=== PATIENT | male | born 1970 | race Caucasian/White ===

== ENCOUNTER 2021-04-29 09:07 | Outpatient (CLI) | payer OTHER, SELFPAY ==
--- NOTE | ~2021-04-29 | CT_ITS ---
EXAMINATION: CT abdomen pelvis w con DATE: 04/29/2021 09:46 INDICATION: Low abdominal pain for 3 weeks TECHNIQUE: Computed tomography (CT) of the abdomen and pelvis was performed with 100 cc Omnipaque 350 intravenous contrast. Automated exposure control and iterative reconstruction technique were employe d. Exam dose: 769.61 mGy-cm total exam DLP. COMPARISON: None. FINDINGS: There is focal discoid scarring in the anterolateral left lower lobe base. No infiltrate or consolidation at the included lower lung zones. Heart size within normal range. No pericardial or pleural effusion. The liver, spleen, pancreas, adrenal glands are unremarkable. The gallbladder is present. No gallblad marta wall thickening or pericholecystic fluid or fat stranding or bile duct or pancreatic duct dilatat ion is noted. There are several up to 1.7 cm right renal cysts. There is a 1.7 cm complex mass including cystic and enhancing solid components at the anterolateral a spect of the lower pole of the right kidney. Right renal malignancy is not excluded. MR kidney examin ation is recommended. The left kidney is unremarkable. No urinary tract calculus or hydroureteronephrosis is detected. The urinary bladder is unremarkable. No significant abnormality of the prostate gland. There is atherosclerotic calcification of the abdominal aorta. No intraperitoneal or retroperitoneal or pelvic mass lesion or adenopathy or ascites. Normal appendix. No bowel obstruction, bowel wall thickening, pneumatosis or intraperitoneal free air . Very small fat-containing umbilical hernia. No suspicious osteolytic or osteoblastic lesions are noted. IMPRESSION: Suspicious complex 1.7 cm mass in the anterolateral lower pole right kidney; right renal malignancy is not excluded. MR kidney examination is recommended Right renal cysts Dr. Koenig telephoned the report and MR kidney examination recommendation on 04/29/2021 [address] [place]'s nurse Radha Reviewed, dictated and finalized at [facility]. Reviewed, dictated and finalized at [facility]. [employer] ASSISTANT IMPRESSION: Suspicious complex 1.7 cm mass in the anterolateral lower pole rig ht kidney; right renal malignancy is not excluded. MR kidney examination is rec ommended Right renal cysts Dr. Koenig telephoned the report and MR kidney examination recommendation on [address] [place]'s nurse Radha
== END 2021-04-29 09:08 | disposition home or self-care (01) ==
LOC: CHSIMG 09:12
PROVIDERS: PCP Internal Medicine; Visit Provider Internal Medicine
DX: R10.32 Left lower quadrant pain (principal)
CPT/HCPCS: 74177; Q9967

== ENCOUNTER 2021-06-17 13:20 | Outpatient (CLI) | payer OTHER, SELFPAY ==
--- NOTE | ~2021-06-17 | MR_ITS ---
EXAMINATION: MR abdomen wo/w con DATE: 06/17/2021 15:07 INDICATION: Right renal mass TECHNIQUE: Magnetic resonance imaging (MRI) of the abdomen was performed without and with 19 mL Multi ruben intravenous contrast. Sequences included coronal T2-weighted SS-FSE, coronal and axial FS 2D-F IESTA, axial STIR FSE, axial T2-weighted SS-FSE, axial T2-weighted FS SS-FSE, axial diffusion-weighte d SE, axial dual-echo T1-weighted FSPGR, and axial and coronal T1-weighted LAVA. Postcontrast axial T 1-weighted LAVA images were obtained in a time course. Postcontrast coronal T1-weighted LAVA images w ere obtained. COMPARISON: CT dated 04/29/2021 FINDINGS: Heart size is normal. No pericardial or pleural effusion. Liver, gallbladder, spleen, pancreas, left kidney and bilateral adrenal glands are normal. There is a 1.8 cm mixed solid and cystic mass with fran th thick and enhancing septations and separate small nodular enhancing components at the lower pole o f the right kidney, Bosniak 4. There are couple T2 hyperintense nonenhancing cysts at the upper pole of the right kidney the largest measuring 1.7 cm No pathologically enlarged abdominal bones are unrem arkable with normal marrow signal. lymphadenopathy. Visualized portions of the bowels including the a ppendix are normal. IMPRESSION: 1. 1.8 cm Bosniak 4 mixed solid and cystic nodule at the lower pole of the right kidney which is a cotter rgical lesion. No lesion suspicious for metastatic disease. Reviewed, dictated and finalized at [facility]. GATHERER IMPRESSION: 1. 1.8 cm Bosniak 4 mixed solid and cystic nodule at the lower pole of the righ t kidney which is a surgical lesion. No lesion suspicious for metastatic diseas e.
[2021-06-17 14:07] LABS: Estimated Glomerular Filt Rate > 60
== END 2021-06-17 13:21 | disposition home or self-care (01) ==
PROVIDERS: PCP Internal Medicine; Visit Provider Urology
DX: N28.89 Other specified disorders of kidney and ureter (principal)
CPT/HCPCS: 74183; A9577

== ENCOUNTER 2021-07-08 09:15 | Outpatient (CLI) | payer OTHER, SELFPAY ==
--- NOTE | ~2021-07-08 | XR_ITS ---
EXAMINATION: XR chest 2V DATE: 07/08/2021 09:34 INDICATION: Renal mass. Preoperative evaluation for possible metastatic disease. TECHNIQUE: frontal and lateral views of the chest were obtained. COMPARISON: Chest radiograph dated 07/19/2007 FINDINGS: No focal airspace opacities, pulmonary edema, pleural effusion or pneumothorax. The cardiomediastinal silhouette is normal. Old healed fracture deformities at the lateral left sixth-eighth ribs. IMPRESSION: 1. No acute cardiopulmonary disease. Reviewed, dictated and finalized at location [facility].
== END 2021-07-08 09:16 | disposition home or self-care (01) ==
LOC: CHSIMG 09:17
PROVIDERS: PCP Internal Medicine; Visit Provider Urology
DX: N28.89 Other specified disorders of kidney and ureter (principal)
CPT/HCPCS: 71046

== ENCOUNTER 2021-11-11 15:50 | Outpatient (CLI) | payer OTHER, SELFPAY ==
--- NOTE | ~2021-11-11 | XR_ITS ---
XR_CERV2-3V_CR DATE: 11/11/2021 16:31 INDICATION: Left neck pain, neck swelling TECHNIQUE: AP, open-mouth, lateral views COMPARISON: 04/11/2014 cervical spine FINDINGS: There is straightening of the cervical spine suggesting muscle spasm. There is mild levoscoliosis of the cervical and upper thoracic spine. C1 and C2 are normally aligned and the odontoid process is intact. Moderately severe degenerative disc disease at C5-6 and C6-7 and severe degenerative disc disease at C7-T1. No fracture or dislocation or locked facet or prevertebral soft tissue swelling. There is uncovertebral joint spurring primarily at C5-6 and C6-7. IMPRESSION: Straightening and mild levoscoliosis Moderately severe degenerative disease at C5-6 and C6-7 Severe degenerative disc disease at C7-T1 Reviewed, dictated and finalized at [facility]. Reviewed, dictated and finalized at [facility].
[2021-11-11 16:10] LABS: Basophils Absolute Auto 0.04 K/mm3 (0.00-0.10); Basophils Percent Auto 0.4 % (0.0-1.0); Eosinophils Absolute Auto 0.03 K/mm3 (0.02-0.50); Eosinophils Percent Auto 0.3 % (1.0-6.0); Hematocrit 39.6 % (40.0-54.0); Hemoglobin 13.2 g/dL (14.0-18.0); Immature Granulocyte Absolute 0.03 K/mm3 (0.00-0.00); Immature Granulocyte Percent A 0.3 % (0.0-0.0); Lymphocytes Absolute Auto 2.19 K/mm3 (1.10-4.50); Lymphocytes Percent Auto 24.5 % (18.0-42.0); Mean Corpuscular HGB Conc 33.3 g/dL (32.0-36.0); Mean Corpuscular Hemoglobin 28.2 pg (27.0-31.0); Mean Corpuscular Volume 84.6 fL (78.0-102.0); Mean Platelet Volume 8.7 fl (8.7-11.0); Monocytes Absolute Auto 0.65 K/mm3 (0.10-0.90); Monocytes Percent Auto 7.3 % (2.0-11.0); Neutrophils Percent Auto 67.2 % (50.0-70.0); Platelet Count Result 396 K/mm3 (150-420); Red Blood Count 4.68 M/mm3 (4.70-6.10); Red Cell Distribution Width 13.4 % (11.6-14.4); White Blood Count 8.9 K/mm3 (4.8-10.8)
[2021-11-11 16:40] LABS: Alanine Aminotransferase 42 U/L (16-63); Albumin Level 4.2 g/dL (3.4-5.0); Alkaline Phosphatase 94 U/L (46-116); Anion Gap 9 mmol/L (8-16); Aspartate Amino Transferase 21 U/L (15-37); Bilirubin,Total 0.2 mg/dL (0.00-1.00); Blood Urea Nitrogen 12 mg/dL (7-18); Calcium 9.1 mg/dL (8.5-10.1); Carbon Dioxide 24 mmol/L (21-32); Chloride 103 mmol/L (98-108); Estimated Glomerular Filt Rate > 60; Glucose 95 mg/dL (70-99); Osmolality Calculated 281 mOsm/kg (285-295); Potassium 4.3 mmol/L (3.5-5.1); Sodium 136 mmol/L (136-145); Total Protein 7.1 g/dL (6.4-8.2); Uric Acid 4.5 mg/dL (3.5-7.2)
[2021-11-11 16:41] LABS: CRP < 0.2 mg/dL (0.0-0.9)
[2021-11-12 14:39] LABS: Ferritin 71 ng/mL (26-388); Iron 70 ug/dL (65-175); Percent Iron Saturation 25 % (12-57)
== END 2021-11-11 15:51 | disposition home or self-care (01) ==
LOC: CHSLAB 15:53
PROVIDERS: PCP Internal Medicine; Visit Provider Nurse Practitioner Family
DX: M54.2 Cervicalgia (principal); R22.1 Localized swelling, mass and lump, neck; I10 Essential (primary) hypertension; M50.322 Other cervical disc degeneration at C5-C6 level; M50.323 Other cervical disc degeneration at C6-C7 level; D64.9 Anemia, unspecified
CPT/HCPCS: 36415; 72040; 80053; 82728; 83540; 83550; 84550; 85025; 86140

== ENCOUNTER 2021-12-19 11:39 | Outpatient (CLI) | payer OTHER, SELFPAY ==
[2021-12-19 11:52] LABS: Basophils Absolute Auto 0.05 K/mm3 (0.00-0.10); Basophils Percent Auto 0.5 % (0.0-1.0); Eosinophils Percent Auto 1.1 % (1.0-6.0); Hematocrit 42.3 % (40.0-54.0); Hemoglobin 14.5 g/dL (14.0-18.0); Immature Granulocyte Absolute 0.06 K/mm3 (0.00-0.00); Immature Granulocyte Percent A 0.6 % (0.0-0.0); Lymphocytes Absolute Auto 3.42 K/mm3 (1.10-4.50); Lymphocytes Percent Auto 36.5 % (18.0-42.0); Mean Corpuscular HGB Conc 34.3 g/dL (32.0-36.0); Mean Corpuscular Hemoglobin 28.3 pg (27.0-31.0); Mean Corpuscular Volume 82.6 fL (78.0-102.0); Mean Platelet Volume 8.7 fl (8.7-11.0); Monocytes Absolute Auto 1.03 K/mm3 (0.10-0.90); Neutrophils Absolute Auto 4.7 K/mm3 (1.7-7.2); Neutrophils Percent Auto 50.3 % (50.0-70.0); Platelet Count Result 405 K/mm3 (150-420); Red Blood Count 5.12 M/mm3 (4.70-6.10); Red Cell Distribution Width 13.3 % (11.6-14.4); White Blood Count 9.4 K/mm3 (4.8-10.8)
[2021-12-19 11:58] LABS: Appearance Urine Clear (Clear); Bilirubin Urine Negative (Negative); Color Urine Light Yellow (Yellow); Glucose Urine UA Negative (Negative); Ketones Urine Negative (Negative); Leukocyte Esterase Ur Negative (Negative); Nitrate Urine Negative (Negative); Protein Urine Negative (Negative); Specific Grav Ur 1.015 (1.010-1.020); Urobilinogen Urine 0.2 mg/dL (0.2-1.0)
[2021-12-19 12:08] LABS: Alanine Aminotransferase 116 U/L (16-63); Albumin Level 4.1 g/dL (3.4-5.0); Alkaline Phosphatase 110 U/L (46-116); Anion Gap 11 mmol/L (8-16); Aspartate Amino Transferase 66 U/L (15-37); Bilirubin,Total 0.2 mg/dL (0.00-1.00); Blood Urea Nitrogen 15 mg/dL (7-18); Calcium 8.9 mg/dL (8.5-10.1); Carbon Dioxide 22 mmol/L (21-32); Chloride 101 mmol/L (98-108); Cholesterol 269 mg/dL (0-200); Estimated Glomerular Filt Rate > 60; Glucose 105 mg/dL (70-99); HDL Direct 37 mg/dL (40-60); LDL Cholesterol Calculated 169 mg/dL (<130); Osmolality Calculated 278 mOsm/kg (285-295); Potassium 3.6 mmol/L (3.5-5.1); Sodium 134 mmol/L (136-145); Total Protein 7.8 g/dL (6.4-8.2); Triglycerides 317 mg/dL (0-150)
[2021-12-19 12:10] LABS: Add Urine Microscopic? YES; Bacteria Urine None seen /hpf; Blood Urine Trace-Intact (Negative); RBC Urine 0-2 /hpf (0-2); WBC Urine None seen /hpf (0-3)
== END 2021-12-19 11:40 | disposition home or self-care (01) ==
LOC: CHSLAB 11:41
PROVIDERS: PCP Internal Medicine; Visit Provider Internal Medicine
DX: D64.9 Anemia, unspecified (principal); I10 Essential (primary) hypertension
CPT/HCPCS: 36415; 80053; 80061; 81001; 85025

== ENCOUNTER 2021-12-20 09:08 | Outpatient (CLI) | payer OTHER, SELFPAY ==
[2021-12-20 10:40] LABS: GGT 321 U/L (15-85)
[2021-12-20 10:47] LABS: Hemoglobin A1C 5.6 % (<5.7)
[2021-12-23 12:10] LABS: Hepatitis A Antibody IgM Nonreactive; Hepatitis B Core Antibody Nonreactive (Nonreactive); Hepatitis B Surface Antigen Nonreactive (Nonreactive); Hepatitis C Signal to Cutoff 0.02 ratio (<1.00); Hepatitis C Virus Antibody Nonreactive (Nonreactive)
[2022-01-06 06:56] LABS: Reference Lab Test Name PHOSPHATIDYLETHANOL
== END 2021-12-20 09:09 | disposition home or self-care (01) ==
LOC: CHSLAB 09:09
PROVIDERS: PCP Internal Medicine; Visit Provider Internal Medicine
DX: R94.5 Abnormal results of liver function studies (principal); R73.9 Hyperglycemia, unspecified
CPT/HCPCS: 36415; 80074; 80321; 82977; 83036; G0480

== ENCOUNTER 2022-01-29 11:01 | Outpatient (CLI) | payer OTHER, SELFPAY ==
[2022-01-29 11:16] LABS: Basophils Absolute Auto 0.04 K/mm3 (0.00-0.10); Basophils Percent Auto 0.3 % (0.0-1.0); Eosinophils Absolute Auto 0.11 K/mm3 (0.02-0.50); Eosinophils Percent Auto 0.9 % (1.0-6.0); Hematocrit 44.3 % (40.0-54.0); Hemoglobin 14.9 g/dL (14.0-18.0); Immature Granulocyte Absolute 0.05 K/mm3 (0.00-0.00); Immature Granulocyte Percent A 0.4 % (0.0-0.0); Lymphocytes Absolute Auto 3.14 K/mm3 (1.10-4.50); Lymphocytes Percent Auto 25.1 % (18.0-42.0); Mean Corpuscular HGB Conc 33.6 g/dL (32.0-36.0); Mean Corpuscular Hemoglobin 27.7 pg (27.0-31.0); Mean Corpuscular Volume 82.5 fL (78.0-102.0); Mean Platelet Volume 8.8 fl (8.7-11.0); Monocytes Absolute Auto 1.28 K/mm3 (0.10-0.90); Monocytes Percent Auto 10.2 % (2.0-11.0); Neutrophils Absolute Auto 7.9 K/mm3 (1.7-7.2); Neutrophils Percent Auto 63.1 % (50.0-70.0); Platelet Count Result 387 K/mm3 (150-420); Red Blood Count 5.37 M/mm3 (4.70-6.10); Red Cell Distribution Width 14.3 % (11.6-14.4); White Blood Count 12.5 K/mm3 (4.8-10.8)
[2022-01-29 11:38] LABS: Anion Gap 9 mmol/L (8-16); Blood Urea Nitrogen 11 mg/dL (7-18); Carbon Dioxide 28 mmol/L (21-32); Chloride 103 mmol/L (98-108); Estimated Glomerular Filt Rate > 60; Potassium 3.9 mmol/L (3.5-5.1); Sodium 140 mmol/L (136-145)
[2022-01-29 11:39] LABS: Alanine Aminotransferase 31 U/L (16-63); Albumin Level 4.1 g/dL (3.4-5.0); Alkaline Phosphatase 97 U/L (46-116); Aspartate Amino Transferase 18 U/L (15-37); Bilirubin,Total 0.4 mg/dL (0.00-1.00); GGT 129 U/L (15-85); Glucose 127 mg/dL (70-99); Osmolality Calculated 291 mOsm/kg (285-295); Total Protein 7.3 g/dL (6.4-8.2)
== END 2022-01-29 11:02 | disposition home or self-care (01) ==
LOC: CHSLAB 11:04
PROVIDERS: PCP Internal Medicine; Visit Provider Internal Medicine
DX: D75.839 Thrombocytosis, unspecified (principal); D64.1 Secondary sideroblastic anemia due to disease
CPT/HCPCS: 36415; 80053; 82977; 85025

== ENCOUNTER 2022-06-19 10:31 | Outpatient (CLI) | payer OTHER, SELFPAY ==
[2022-06-19 10:44] LABS: Basophils Absolute Auto 0.06 K/mm3 (0.00-0.10); Basophils Percent Auto 0.5 % (0.0-1.0); Eosinophils Absolute Auto 0.11 K/mm3 (0.02-0.50); Eosinophils Percent Auto 0.8 % (1.0-6.0); Hematocrit 43.8 % (40.0-54.0); Hemoglobin 14.8 g/dL (14.0-18.0); Immature Granulocyte Absolute 0.05 K/mm3 (0.00-0.00); Immature Granulocyte Percent A 0.4 % (0.0-0.0); Lymphocytes Percent Auto 21.4 % (18.0-42.0); Mean Corpuscular HGB Conc 33.8 g/dL (32.0-36.0); Mean Corpuscular Hemoglobin 28.4 pg (27.0-31.0); Mean Corpuscular Volume 83.9 fL (78.0-102.0); Mean Platelet Volume 8.6 fl (8.7-11.0); Monocytes Absolute Auto 1.35 K/mm3 (0.10-0.90); Monocytes Percent Auto 10.3 % (2.0-11.0); Neutrophils Absolute Auto 8.7 K/mm3 (1.7-7.2); Neutrophils Percent Auto 66.6 % (50.0-70.0); Platelet Count Result 414 K/mm3 (150-420); Red Blood Count 5.22 M/mm3 (4.70-6.10); Red Cell Distribution Width 13.5 % (11.6-14.4); White Blood Count 13.1 K/mm3 (4.8-10.8)
[2022-06-19 10:58] LABS: Hemoglobin A1C 5.7 % (<5.7)
[2022-06-19 11:31] LABS: Alanine Aminotransferase 36 U/L (16-63); Alkaline Phosphatase 87 U/L (46-116); Anion Gap 12 mmol/L (8-16); Aspartate Amino Transferase 35 U/L (15-37); Bilirubin,Total 0.2 mg/dL (0.00-1.00); Blood Urea Nitrogen 14 mg/dL (7-18); Carbon Dioxide 24 mmol/L (21-32); Chloride 102 mmol/L (98-108); Cholesterol 267 mg/dL (0-200); Estimated Glomerular Filt Rate > 60; GGT 107 U/L (15-85); Glucose 132 mg/dL (70-99); HDL Direct 31 mg/dL (40-60); LDL Cholesterol Calculated 153 mg/dL (<130); Osmolality Calculated 288 mOsm/kg (285-295); Potassium 3.7 mmol/L (3.5-5.1); Sodium 138 mmol/L (136-145); Thyroid Stimulating Hormone 1.06 uIU/mL (0.36-3.74); Total Protein 7.5 g/dL (6.4-8.2); Triglycerides 414 mg/dL (0-150)
[2022-06-19 11:35] LABS: LDL Cholesterol Direct 172 mg/dL (0-130)
[2022-06-19 14:55] LABS: Prostate Specific Antigen 0.8 ng/mL (< OR = 4.0)
== END 2022-06-19 10:32 | disposition home or self-care (01) ==
LOC: CHSLAB 10:33
PROVIDERS: PCP Internal Medicine; Visit Provider Internal Medicine
DX: R79.89 Other specified abnormal findings of blood chemistry (principal); Z12.5 Encounter for screening for malignant neoplasm of prostate
CPT/HCPCS: 36415; 80053; 80061; 82977; 83036; 83721; 84153; 84443; 85025; G0103

== ENCOUNTER 2022-07-08 09:00 | Outpatient (NON) | payer OTHER, SELFPAY | END 2022-07-08 09:01 | disposition home or self-care (01) | LOC: ANHLAB 07-09 09:52 | PROVIDERS: PCP Internal Medicine; Visit Provider Internal Medicine Gastroenterology | DX: Z12.11 Encounter for screening for malignant neoplasm of colon (principal); D12.5 Benign neoplasm of sigmoid colon | CPT/HCPCS: 88305 ==

== ENCOUNTER 2022-07-08 11:28 | Day surgery (SDC) | payer OTHER, SELFPAY ==
[2022-06-26 13:19] VITALS: BMI 29.9
[2022-07-08 12:00] VITALS: BP 117/91; PULSE 108; RESP 20; TEMP 37.4; O2SAT 97
[2022-07-08] MEDS: LACTATED RINGERS 1,000 ML 150 ML IV CONT (12:56)
--- NOTE | 2022-07-08 13:41 | P.HP_ITS ---
History of Present Illness History of Present Illness Consent: Risks, benefits, and alternatives have been discussed and questions answered. Patient agrees to proceed with procedure. Chief complaint: Neoplasm Screening Narrative: Jason Simpson is a 52 year old male Presents today for screening colonoscopy. Current weight appetite and bowel movements are normal. Patient denies abdominal pain. He has had no bleeding. Family history noncontributory. Neoplasia screening is recommended because of age. 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 Review of Systems 2 Review of Systems: Review of systems noncontributory. [facility] Social History Social History Smoking status: Never smoker Alcohol intake: never Substance use: never Substance use type: does not use Living arrangements: with family Spiritual care concerns: No Meds Home Medications and Allergies Home Medications Medication Instructions Recorded Confirmed Type rosuvastatin 5 mg tablet 5 mg PO DAILY 06/26/22 07/08/22 History sodium,potassium,mag sulfates 17.5 See Rx Instructions PO .COMPLEX 06/26/22 07/08/22 Rx gram-3.13 gram-1.6 gram oral soln #354 mL (Suprep Bowel Prep Kit) Allergies Allergy/AdvReac Type Severity Reaction Status Date / Time No Known Allergies Allergy Verified 07/08/22 12:52 Vital Signs Vital Signs - 24 hr 07/08/22 12:00 Temperature 99.4 F Pulse Rate 108 H Respiratory Rate 20 Blood Pressure 117/91 H Pulse Oximetry 97 Oxygen Delivery Room Air Exam Narrative: Physical exam reveals patient to be alert. Vital signs stable. HEENT exam is unremarkable. Patient is anicteric. Lungs are clear to auscultation and percussion. Heart is without murmur or extra sounds. Abdominal exam bowel sounds present soft nontender with no hepatosplenomegaly. Digital external rectal exam is normal. Assessment and Plan Assessment and plan (1) Encounter for screening colonoscopy: Code(s): Z12.11 - Encounter for screening for malignant neoplasm of colon Status: Acute Assessment and Plan: Patient presents today for screening colonoscopy. He appears to be at average risk for colon polyps. Further recommendations may be given after endoscopy.
--- NOTE | 2022-07-08 13:48 | WPDANESEPPF ---
Anes - Initial Pre Proc Eval Procedure: Operation Date: 07/08/22 13:30 Proposed Procedures p Screening Colonoscopy - Tang Merino MD Date/Time: 07/08/22 13:48 Surgeon: Tang Merino MD Pre Op Diagnosis: Neoplasm Screening Patient Data Age: 52 Gender: M Height: 1.83 m Weight: 97.7 kg Last Vital Signs Temp 37.4 C 07/08/22 12:00 Pulse 108 H 07/08/22 12:00 Resp 20 07/08/22 12:00 BP 117/91 H 07/08/22 12:00 Pulse Ox 97 07/08/22 12:00 O2 Del Method Room Air 07/08/22 12:00 Allergies Allergy/AdvReac Type Severity Reaction Status Date / Time No Known Allergies Allergy Verified 07/08/22 12:52 Home Medications Medication Instructions Recorded Confirmed Type rosuvastatin 5 mg tablet 5 mg PO DAILY 06/26/22 07/08/22 History sodium,potassium,mag sulfates 17.5 See Rx Instructions PO .COMPLEX 06/26/22 07/08/22 Rx gram-3.13 gram-1.6 gram oral soln #354 mL (Suprep Bowel Prep Kit) Patient hx anesthesia problems: none Family hx anesthesia problems: none Results Review: All pre-operative results and documents have been reviewed as part of the pre-operative evaluation. [facility] Past Medical History Medical History (Updated 07/08/22 @ 13:48 by Artem Yuen MD) Renal cancer Surgical History Surgical History (Updated 07/08/22 @ 13:48 by Artem Yuen MD) History of partial nephrectomy Social History Social History Smoking status: Never smoker Alcohol intake: never Substance use: never Substance use type: does not use Living arrangements: with family Spiritual care concerns: No Anes - Eval Final PreProcedure Day of Procedure 07/08/22 13:48 Patient weight: overweight Heart: regular rate and rhythm Lungs: clear to auscultation Airway: Mallampati scale class II Neurological: alert and oriented Last oral intake: >/= 8 hours ASA classification: II Emergent: no Anesthetic plan: proceed Anesthesia type and monitoring: general GIVS and standard monitoring Results Review: All pre-operative results and documents have been reviewed as part of the pre-operative evaluation. Informed Consent: The patient's anesthetic plan and its attendant risks and benefits were discussed with the patient/family/POA. Questions were solicited and answers provided to the satisfaction of the patient/family/POA.
[2022-07-08 14:55] VITALS: BP 102/76; PULSE 89; RESP 18; O2SAT 100
[2022-07-08 15:05] VITALS: BP 116/82; PULSE 80; RESP 18; O2SAT 100
[2022-07-08 15:10] VITALS: BP 118/80; PULSE 82; RESP 18; O2SAT 100
--- NOTE | 2022-07-08 15:24 | WPDANESPN ---
Anes - Prog Note Post-Op Date/Time: 07/08/22 15:24 Cardiovascular status: normal Respiratory status: normal Airway patency: baseline Mental status: baseline Post-Op hydration status: normal Vital Signs: Last Vital Signs Temp 37.4 C 07/08/22 12:00 Pulse 82 07/08/22 15:10 Resp 18 07/08/22 15:10 BP 118/80 07/08/22 15:10 Pulse Ox 100 07/08/22 15:10 O2 Del Method Room Air 07/08/22 15:10 Pain Score (VAS): 0/10 I/O: Intake & Output 07/07/22 07/08/22 07/08/22 23:59 07:59 15:59 Intake Total 850 Balance 850 Patient Feedback: Patient satisfied with anesthetic care.
== END 2022-07-08 15:35 | disposition home or self-care (01) ==
PROVIDERS: PCP Internal Medicine; Visit Provider Internal Medicine Gastroenterology
PROC: 0DJD8ZZ Inspection of Lower Intestinal Tract, Via Natural or Artificial Opening Endoscopic (ICD-10-PCS; CPT 45378; principal; 2022-07-08 13:30)
DX: Z12.11 Encounter for screening for malignant neoplasm of colon (principal)
CPT/HCPCS: 45385

== ENCOUNTER 2022-07-17 08:03 | Outpatient (RCR) | payer OTHER, SELFPAY ==
[2022-07-17 08:20] VITALS: BMI 29.7
[2022-07-17 08:21] VITALS: BMI 29.7
== END 2022-10-06 09:05 | disposition home or self-care (01) ==
LOC: ANHDMC 08:03
PROVIDERS: PCP Internal Medicine; Visit Provider Internal Medicine
DX: E78.5 Hyperlipidemia, unspecified (principal); R63.5 Abnormal weight gain; Z71.3 Dietary counseling and surveillance
CPT/HCPCS: 97802

== ENCOUNTER 2022-11-06 13:29 | Outpatient (CLI) | payer OTHER, SELFPAY ==
--- NOTE | ~2022-11-06 | PE_ITS ---
EXAMINATION: PET skull to mid thigh DATE: 11/06/2022 15:27 INDICATION: Hilar lymphadenopathy. TECHNIQUE: Blood glucose level was 104 mg/dL. 9.572 mCi of 18-fluorodeoxyglucose (18-FDG) was adminis tered i.v. Low dose computed tomography (CT) images were acquired from the base of the brain to the p roximal thighs for attenuation correction and anatomic localization. Automated exposure control was e mployed. Dose-length product (DLP) was 541 mGy-cm. Positron emission tomography (PET) images were acq uired in the same distribution. COMPARISON: CT abdomen and pelvis 04/29/2021 FINDINGS: Head/neck: There are no pathologically enlarged lymph nodes. Chest: The lungs demonstrate mild atelectasis. There is a 10 mm nodule in left lower lobe without inc reased activity, stable from 04/29/2021, likely benign. No pleural effusion. The heart size is normal. No pericardial effusion. There is mild bilateral hilar and mediastinal lymphadenopathy with increased activity. For example, a right paratracheal node measures 2.4 x 1.8 cm with maximum SUV of 4.8. Ther e are old healed left rib fractures. Abdomen/pelvis/proximal thighs: The liver, gallbladder, spleen, pancreas, adrenal glands, and left ki dney are normal. There are changes of partial right nephrectomy. There is a 13 mm cyst in right kidne y. Aortic atherosclerosis is noted. There are no dilated loops of bowel. The appendix is normal. Ther e are no pathologically enlarged lymph nodes. There is no free intraperitoneal fluid. There is no oss eous malignancy. IMPRESSION: 1. Mediastinal and bilateral hilar lymphadenopathy with increased activity. The differential diagnosi s includes reactive lymphadenopathy such as sarcoid, lymphoma, and metastatic disease. Reviewed, dictated and finalized at location [facility]. IMPRESSION: 1. Mediastinal and bilateral hilar lymphadenopathy with increased activity. The differential diagnosis includes reactive lymphadenopathy such as sarcoid, lymp ramesh, and metastatic disease.
[2022-11-06 14:08] LABS: Glucose Point of Care 104 mg/dl (65-105)
== END 2022-11-06 13:30 | disposition home or self-care (01) ==
PROVIDERS: PCP Internal Medicine; Visit Provider Urology
DX: R59.0 Localized enlarged lymph nodes (principal)
CPT/HCPCS: 78815; A9552

== ENCOUNTER 2022-11-25 11:12 | Outpatient (CLI) | payer OTHER, SELFPAY ==
[2022-11-25 12:13] LABS: Alanine Aminotransferase 37 U/L (16-63); Albumin Level 3.7 g/dL (3.4-5.0); Alkaline Phosphatase 85 U/L (46-116); Anion Gap 11 mmol/L (8-16); Aspartate Amino Transferase 16 U/L (15-37); Bilirubin,Total 0.3 mg/dL (0.00-1.00); Blood Urea Nitrogen 12 mg/dL (7-18); Calcium 8.7 mg/dL (8.5-10.1); Carbon Dioxide 24 mmol/L (21-32); Chloride 104 mmol/L (98-108); Cholesterol 146 mg/dL (0-200); Estimated Glomerular Filt Rate > 60; GGT 85 U/L (15-85); Glucose 145 mg/dL (70-99); HDL Direct 33 mg/dL (40-60); LDL Cholesterol Calculated 55 mg/dL (<130); Osmolality Calculated 290 mOsm/kg (285-295); Potassium 3.8 mmol/L (3.5-5.1); Sodium 139 mmol/L (136-145); Total Protein 6.8 g/dL (6.4-8.2); Triglycerides 289 mg/dL (0-150)
[2022-11-25 14:06] LABS: Hemoglobin A1C 5.8 % (<5.7)
== END 2022-11-25 11:13 | disposition home or self-care (01) ==
LOC: CHSLAB 11:14
PROVIDERS: PCP Internal Medicine; Visit Provider Internal Medicine
DX: E78.5 Hyperlipidemia, unspecified (principal); K76.0 Fatty (change of) liver, not elsewhere classified; R73.9 Hyperglycemia, unspecified
CPT/HCPCS: 36415; 80053; 80061; 82977; 83036

== ENCOUNTER 2022-12-30 11:26 | Outpatient (CLI) | payer OTHER, SELFPAY ==
[2023-01-02 12:24] LABS: NIL 0.07 IU/mL; Quantiferon TB Plus, 1T NEGATIVE (NEGATIVE); TB1-NIL 0.01 IU/mL; TB2-NIL 0.01 IU/mL
== END 2022-12-30 11:27 | disposition home or self-care (01) ==
PROVIDERS: PCP Internal Medicine; Visit Provider Internal Medicine Pulmonary Disease
DX: R59.0 Localized enlarged lymph nodes (principal)
CPT/HCPCS: 36415; 86480

== ENCOUNTER 2023-06-18 10:19 | Outpatient (CLI) | payer OTHER, SELFPAY ==
[2023-06-18 10:34] LABS: Appearance Urine Clear (Clear); Basophils Absolute Auto 0.06 K/mm3 (0.00-0.10); Basophils Percent Auto 0.5 % (0.0-1.0); Bilirubin Urine Negative (Negative); Blood Urine Trace-Intact (Negative); Color Urine Light Yellow (Yellow); Eosinophils Absolute Auto 0.09 K/mm3 (0.02-0.50); Eosinophils Percent Auto 0.8 % (1.0-6.0); Glucose Urine UA Negative (Negative); Hematocrit 42.2 % (40.0-54.0); Hemoglobin 14.2 g/dL (14.0-18.0); Immature Granulocyte Absolute 0.05 K/mm3 (0.00-0.00); Immature Granulocyte Percent A 0.4 % (0.0-0.0); Ketones Urine Negative (Negative); Leukocyte Esterase Ur Negative (Negative); Lymphocytes Absolute Auto 2.95 K/mm3 (1.10-4.50); Lymphocytes Percent Auto 24.7 % (18.0-42.0); Mean Corpuscular HGB Conc 33.6 g/dL (32.0-36.0); Mean Corpuscular Hemoglobin 28.2 pg (27.0-31.0); Mean Corpuscular Volume 83.9 fL (78.0-102.0); Mean Platelet Volume 8.5 fl (8.7-11.0); Monocytes Absolute Auto 1.25 K/mm3 (0.10-0.90); Monocytes Percent Auto 10.5 % (2.0-11.0); Neutrophils Absolute Auto 7.5 K/mm3 (1.7-7.2); Neutrophils Percent Auto 63.1 % (50.0-70.0); Nitrate Urine Negative (Negative); Platelet Count Result 360 K/mm3 (150-420); Protein Urine Negative (Negative); Red Blood Count 5.03 M/mm3 (4.70-6.10); Red Cell Distribution Width 13.4 % (11.6-14.4); Specific Grav Ur <= 1.005 (1.010-1.020); Urobilinogen Urine 0.2 mg/dL (0.2-1.0); White Blood Count 11.9 K/mm3 (4.8-10.8)
[2023-06-18 10:46] LABS: Add Urine Microscopic? YES; Bacteria Urine None seen /hpf; RBC Urine 0-2 /hpf (0-2); WBC Urine None seen /hpf (0-3)
[2023-06-18 11:11] LABS: Hemoglobin A1C 5.5 % (<5.7)
[2023-06-18 11:39] LABS: Alanine Aminotransferase 39 U/L (16-63); Albumin Level 4.1 g/dL (3.4-5.0); Alkaline Phosphatase 82 U/L (46-116); Anion Gap 13 mmol/L (8-16); Aspartate Amino Transferase 17 U/L (15-37); Bilirubin,Total 0.3 mg/dL (0.00-1.00); Blood Urea Nitrogen 14 mg/dL (7-18); Calcium 8.9 mg/dL (8.5-10.1); Carbon Dioxide 26 mmol/L (21-32); Chloride 103 mmol/L (98-108); Cholesterol 159 mg/dL (0-200); Estimated Glomerular Filt Rate > 60; Glucose 112 mg/dL (70-99); HDL Direct 42 mg/dL (40-60); LDL Cholesterol Calculated 72 mg/dL (<130); Osmolality Calculated 295 mOsm/kg (285-295); Potassium 3.7 mmol/L (3.5-5.1); Prostate Specific Antigen 0.7 ng/mL (< OR = 4.0); Sodium 142 mmol/L (136-145); Thyroid Stimulating Hormone 1.47 uIU/mL (0.36-3.74); Total Protein 7.3 g/dL (6.4-8.2); Triglycerides 223 mg/dL (0-150)
== END 2023-06-18 10:20 | disposition home or self-care (01) ==
LOC: CHSLAB 10:21
PROVIDERS: PCP Internal Medicine; Visit Provider Internal Medicine
DX: Z00.00 Encounter for general adult medical examination without abnormal findings (principal); E78.5 Hyperlipidemia, unspecified; R73.03 Prediabetes
CPT/HCPCS: 36415; 80053; 80061; 81001; 83036; 84153; 84443; 85025; G0103

== ENCOUNTER 2023-06-22 12:20 | Outpatient (CLI) | payer OTHER, SELFPAY ==
[2023-06-25 16:45] LABS: Reference Lab Test Name FLOW CYTOMETRY
== END 2023-06-22 12:21 | disposition home or self-care (01) ==
LOC: CHSLAB 12:22
PROVIDERS: PCP Internal Medicine; Visit Provider Internal Medicine
DX: D72.829 Elevated white blood cell count, unspecified (principal)
CPT/HCPCS: 36415; 88184; 88185

== ENCOUNTER 2024-01-08 09:42 | Outpatient (CLI) | payer OTHER, SELFPAY ==
[2024-01-08 09:56] LABS: Basophils Absolute Auto 0.05 K/mm3 (0.00-0.10); Basophils Percent Auto 0.5 % (0.0-1.0); Eosinophils Absolute Auto 0.11 K/mm3 (0.02-0.50); Eosinophils Percent Auto 1.1 % (1.0-6.0); Hematocrit 41.3 % (40.0-54.0); Hemoglobin 14.4 g/dL (14.0-18.0); Immature Granulocyte Absolute 0.04 K/mm3 (0.00-0.00); Immature Granulocyte Percent A 0.4 % (0.0-0.0); Lymphocytes Absolute Auto 3.17 K/mm3 (1.10-4.50); Lymphocytes Percent Auto 32.8 % (18.0-42.0); Mean Corpuscular HGB Conc 34.9 g/dL (32-36); Mean Corpuscular Hemoglobin 29.6 pg (27.0-31.0); Mean Corpuscular Volume 84.8 fL (78.0-102.0); Mean Platelet Volume 8.4 fl (8.7-11.0); Monocytes Absolute Auto 0.98 K/mm3 (0.10-0.90); Monocytes Percent Auto 10.2 % (2.0-11.0); Platelet Count Result 355 K/mm3 (150-420); Red Blood Count 4.87 M/mm3 (4.70-6.10); Red Cell Distribution Width 13.3 % (11.6-14.4); White Blood Count 9.7 K/mm3 (4.8-10.8)
[2024-01-08 14:30] LABS: Alanine Aminotransferase 26 U/L (16-63); Albumin Level 3.8 g/dL (3.4-5.0); Alkaline Phosphatase 76 U/L (46-116); Anion Gap 5 mmol/L (4-12); Aspartate Amino Transferase 15 U/L (15-37); Bilirubin,Total 0.5 mg/dL (0.00-1.00); Blood Urea Nitrogen 12 mg/dL (7-18); Calcium 9.1 mg/dL (8.5-10.1); Carbon Dioxide 29 mmol/L (21-32); Chloride 107 mmol/L (98-108); Cholesterol 197 mg/dL (0-200); Estimated Glomerular Filt Rate > 60; Glucose 96 mg/dL (70-99); HDL Direct 40 mg/dL (40-60); LDL Cholesterol Calculated 115 mg/dL (<130); Osmolality Calculated 291 mOsm/kg (285-295); Sodium 141 mmol/L (136-145); Total Protein 6.9 g/dL (6.4-8.2); Triglycerides 210 mg/dL (0-150)
[2024-01-08 14:43] LABS: Hemoglobin A1C 5.5 % (<5.7)
== END 2024-01-08 09:43 | disposition home or self-care (01) ==
LOC: CHSLAB 09:44
PROVIDERS: PCP Internal Medicine; Visit Provider Internal Medicine
DX: R73.01 Impaired fasting glucose (principal); E78.5 Hyperlipidemia, unspecified
CPT/HCPCS: 36415; 80053; 80061; 83036; 85025

== ENCOUNTER 2024-12-29 08:28 | Outpatient (CLI) | payer OTHER, SELFPAY ==
[2024-12-29 08:51] LABS: Hematocrit 41.9 % (40.0-54.0); Hemoglobin 13.8 g/dL (14.0-18.0); Mean Corpuscular HGB Conc 32.9 g/dL (32-36); Mean Corpuscular Hemoglobin 28.0 pg (27.0-31.0); Mean Corpuscular Volume 85.2 fL (78.0-102.0); Platelet Count Result 341 K/mm3 (150-420); Red Blood Count 4.92 M/mm3 (4.70-6.10); White Blood Count 7.9 K/mm3 (4.8-10.8)
[2024-12-29 08:58] LABS: Add Urine Microscopic? NO; Appearance Urine Clear (Clear); Glucose Urine UA Negative (Negative); Leukocyte Esterase Ur Negative (Negative); Nitrate Urine Negative (Negative); Specific Grav Ur 1.015 (1.010-1.020)
[2024-12-29 09:48] LABS: Cholesterol 179 mg/dL (0-200); HDL Direct 40 mg/dL; Triglycerides 155 mg/dL (<150)
[2024-12-29 10:17] LABS: Thyroid Stimulating Hormone 2.300 uIU/mL (0.465-4.680)
== END 2024-12-29 08:29 | disposition home or self-care (01) ==
LOC: CHSLAB 08:41
PROVIDERS: PCP Internal Medicine; Visit Provider Internal Medicine
DX: E78.5 Hyperlipidemia, unspecified (principal); R79.89 Other specified abnormal findings of blood chemistry; R63.0 Anorexia
CPT/HCPCS: 36415; 80061; 81003; 84443; 85027